=== PATIENT | female | born 1970 | race African-American/Black ===

== ENCOUNTER 2018-10-30 15:47 | Emergency (ER) | payer SELFPAY ==
[~2018-10-30] VITALS: Ht 154.9 cm; Wt 72.6 kg
[2018-10-30 15:52] VITALS: BP 197/105
--- NOTE | 2018-10-30 15:56 | NUR ---
48 Y FEMALE BIB FAMILY C/O HIGH BP AND SEVERE HEADACHE AT WORK, +DIZZINESS, -N/V/D. BP IS 197/105. FULL CLEAR SENTENCES. NEURO INTACT. PAIN 8/10 FOR HEADACHE. AA0X4. PT ON MONITOR. BED IS DOWN, LOCKED, BED RAIL X1, ERMD TO SEE PT. HX OF HTN, NO MEDICATION FOR IT.
--- NOTE | 2018-10-30 16:22 | NUR ---
DR GIL BEDSIDE
[2018-10-30] MEDS ORDERED: ONDANSETRON 4 MG/2 ML VIAL IVP ONE (16:25)
[2018-10-30] MEDS ORDERED: MORPHINE SULFATE 4 MG/ML SYR IVP ONE (16:25)
--- NOTE | 2018-10-30 16:34 | NUR ---
[facility] EMT AT BEDSIDE FOR EKG
--- NOTE | 2018-10-30 16:34 | NUR ---
LAB AT BEDSIDE
[2018-10-30 17:11] LABS: BASOPHILS % (AUTO) 0.3 % (0.0-2.0); EOSINOPHILS # (AUTO) 0.1 K/uL (0-0.4); EOSINOPHILS % (AUTO) 1.5 % (0.0-4.0); HEMOGLOBIN 12.9 g/dL (12.0-16.0); LYMPHOCYTES # (AUTO) 2.6 K/uL (2.5-16.5); MEAN CORPUSCULAR HEMOGLOBIN 33 pg (27-31); MEAN CORPUSCULAR HGB CONC 34 g/dL (33-37); MEAN CORPUSCULAR VOLUME 97.5 fL (80-94); MONOCYTES # (AUTO) 0.4 K/uL (0.8-1.0); NEUTROPHILS % (AUTO) 39.2 % (42.2-75.2); PLATELET COUNT (AUTO) 317 K/uL (140-450); RED BLOOD CELL COUNT(AUTO) 3.89 MIL/uL (4.20-5.40); RED CELL DISTRIBUTION WIDTH 12.4 % (11.6-13.7); WHITE BLOOD COUNT (AUTO) 5.1 K/uL (4.8-10.8)
[2018-10-30 17:15] LABS: ALBUMIN 3.7 g/dL (3.4-5.0); ANION GAP 11.3 (8-16); CARBON DIOXIDE 28.3 mmol/L (21-32); CREATININE 0.8 mg/dL (0.6-1.3); POTASSIUM 3.6 mmol/L (3.5-5.1); TOTAL BILIRUBIN 0.4 mg/dL (0.0-1.0)
--- NOTE | 2018-10-30 17:20 | NUR ---
PT AMB TO RESTROOM
[2018-10-30 17:22] LABS: CREATINE KINASE MB 0.9 ng/mL (0-3.6)
[2018-10-30 18:00] VITALS: BP 168/91
--- NOTE | 2018-10-30 18:00 | NUR ---
Patient discharged with v/s stable. Written and verbal after care instructions given and explained. Patient alert, oriented and verbalized understanding of instructions. Ambulatory with steady gait. All questions addressed prior to discharge. ID band removed. Patient advised to follow up with PMD. Rx of LISINOPRIL given. Patient educated on indication of medication including possible reaction and side effects. Opportunity to ask questions provided and answered.
== END 2018-10-30 18:00 | disposition home or self-care (01) ==
LOC: MED 15:47
DX: I16.0 Hypertensive urgency (principal); Z88.2 Allergy status to sulfonamides; Z88.1 Allergy status to other antibiotic agents
CPT/HCPCS: 36415; 70450; 80053; 81025; 82550; 82553; 84484; 85025; 93005; 96361; 96374; 99284; J2270; J2405